=== PATIENT | female | born 1995 | race Caucasian/White ===

== ENCOUNTER 2020-05-13 12:22 | Emergency (ER) | payer OTHER ==
[~2020-05-13] VITALS: Ht 149.9 cm; Wt 90.8 kg
[2020-05-13] MEDS ORDERED: KETOROLAC TROMETHAMINE 10 MG TAB PO ONE (13:30)
[2020-05-13 13:44] LABS: BASO # 0.1 10^3/uL (0.0-0.2); BASO % 0.7 % (0.0-1.0); EOS # 0.1 10^3/uL (0.0-0.5); EOS % 1.6 % (0.0-3.0); HEMATOCRIT 41.5 % (36.0-47.0); HEMOGLOBIN 13.7 g/dl (12.0-15.5); LYMPH # 2.8 10^3/uL (1.5-5.0); LYMPH % 37.7 % (24.0-44.0); MEAN CORPUSCULAR HEMOGLOBIN 28.7 pg (27.0-33.0); MONO # 0.4 10^3/uL (0.0-0.8); MONO % 5.5 % (0.0-5.0); PLATELET COUNT, AUTOMATED 356 10^3/uL (150-450); RED BLOOD COUNT 4.77 10^6/uL (4.00-5.40); WHITE BLOOD COUNT 7.3 10^3/uL (4.0-10.0)
--- NOTE | 2020-05-13 14:42 | REP ---
INDICATION: headache dizzy COMPARISON: None. TECHNIQUE: Axial noncontrast images from the skull base to the vertex with coronal reformations. This CT examination was performed using the following dose reduction techniques: Automated exposure control, adjustment of mA and/or kv according to the patient's size, and use of iterative reconstruction technique. FINDINGS: The ventricles, sulci, and cisterns are normal in position and appearance. Rai-white differentiation is maintained. No acute intracranial hemorrhage, mass/mass effect, pathology or trauma/injury. No evidence for acute infarction. No extra-axial fluid collection. Calvarium is intact. Paranasal sinuses and mastoid air cells are clear. IMPRESSION: Normal noncontrast head CT. No evidence for acute intracranial pathology or trauma/injury. <Electronically signed by Raimundo Fabian > 05/13/20 [id number]
[2020-05-13 15:16] LABS: CK-MB VALUE MASS < 1.0 NG/ML (<3.6); CPK CREATINE PHOSPHOKINASE 48 U/L (26-192); FREE T4 1.06 NG/DL (0.76-1.46); MB/CK RELATIVE INDEX 2.08 (< OR =4); TROPONIN I < 0.02 NG/ML (< 0.10)
[2020-05-13 15:55] VITALS: BP 128/69
== END 2020-05-13 15:57 | disposition home or self-care (01) ==
LOC: M ED 12:22
DX: R51.9 Headache, unspecified (principal); H53.9 Unspecified visual disturbance; R42 Dizziness and giddiness; J45.909 Unspecified asthma, uncomplicated; K21.9 Gastro-esophageal reflux disease without esophagitis

== ENCOUNTER 2020-08-24 07:29 | Emergency (ER) | payer OTHER ==
[~2020-08-24] VITALS: Ht 149.9 cm; Wt 86.9 kg
[2020-08-24] MEDS ORDERED: MULTTAB61 PO (08:02)
[2020-08-24] MEDS ORDERED: ONDANSETRON 4MG/2ML VIAL IV ONE (08:05)
[2020-08-24 08:26] LABS: BASO # 0.1 10^3/uL (0.0-0.2); BASO % 0.8 % (0.0-1.0); EOS # 0.2 10^3/uL (0.0-0.5); EOS % 2.8 % (0.0-3.0); HEMATOCRIT 39.8 % (36.0-47.0); HEMOGLOBIN 13.5 g/dl (12.0-15.5); LYMPH # 2.2 10^3/uL (1.5-5.0); LYMPH % 31.3 % (24.0-44.0); MEAN CORPUSCULAR HEMOGLOBIN 29.6 pg (27.0-33.0); MEAN CORPUSCULAR HGB CONC 33.9 g/dl (32.0-36.5); MEAN CORPUSCULAR VOLUME 87.3 fl (80.0-96.0); MONO # 0.5 10^3/uL (0.0-0.8); MONO % 6.3 % (2.0-8.0); NEUTROPHILS # 4.2 10^3/uL (1.5-8.5); NEUTROPHILS % 58.2 % (36.0-66.0); PLATELET COUNT, AUTOMATED 333 10^3/uL (150-450); RED BLOOD COUNT 4.56 10^6/uL (4.00-5.40); WHITE BLOOD COUNT 7.2 10^3/uL (4.0-10.0)
--- NOTE | 2020-08-24 08:42 | REP ---
INDICATION: upper abd pain, worse after eating COMPARISON: None. TECHNIQUE: Real time reed scale ultrasound examination using curved array transducer. FINDINGS: Liver demonstrates fatty infiltration without focal hepatic lesion identified. Pancreas is incompletely evaluated due to interposed bowel gas. The gallbladder demonstrates multiple gallstones without wall thickening or pericholecystic fluid. No biliary ductal dilatation is appreciated and the common bile duct measures 3.5 mm diameter. Right kidney is normal in reniform shape without hydronephrosis and measures 12.0 x 3.0 x 4.5 cm cm. No ascites in the visualized right upper quadrant. IMPRESSION: 1. Cholelithiasis without sonographic evidence for acute cholecystitis. 2. Hepatosteatosis. <Electronically signed by Raimundo Fabian > 08/24/20 [id number]
--- NOTE | 2020-08-24 08:43 | REP ---
INDICATION: Abdominal Pain COMPARISON: None. TECHNIQUE: Upright view of the chest with supine and upright views of the abdomen and pelvis. FINDINGS: Frontal upright view of the chest demonstrates no acute cardiopulmonary process or free air below the diaphragm to suspect pneumoperitoneum. Supine and upright views of the abdomen and pelvis demonstrate nonspecific bowel gas pattern without obstruction or perforation. No organomegaly. No abnormal calcifications. Skeletal structures normal for age. IMPRESSION: Nonspecific bowel gas pattern. <Electronically signed by Raimundo Fabian > 08/24/20 [id number]
[2020-08-24 08:54] LABS: ALBUMIN 3.7 GM/DL (3.2-5.2); ALT/SGPT 15 U/L (12-78); BILIRUBIN,DIRECT 0.1 MG/DL (0.0-0.2); BILIRUBIN,TOTAL 0.3 MG/DL (0.2-1.0); CK-MB VALUE MASS < 1.0 NG/ML (<3.6); CPK CREATINE PHOSPHOKINASE 56 U/L (26-192); LIPASE 39 U/L (73-393); MB/CK RELATIVE INDEX 1.79 (< OR =4); TOTAL PROTEIN 7.2 GM/DL (6.4-8.2); TROPONIN I < 0.02 NG/ML (< 0.10)
[2020-08-24] MEDS ORDERED: ZOFR4TAB16 PO (09:08)
[2020-08-24] MEDS ORDERED: PROT1TAB2 PO (09:08)
[2020-08-24 09:16] VITALS: BP 122/66
[2020-08-26] MEDS ORDERED: KETO10TAB PO (19:13)
[2020-08-26] MEDS ORDERED: ZOFR4TAB16 PO (19:14)
== END 2020-08-24 09:18 | disposition home or self-care (01) ==
LOC: M ED 07:29
DX: K80.70 Calculus of gallbladder and bile duct without cholecystitis without obstruction (principal); J45.909 Unspecified asthma, uncomplicated; K21.9 Gastro-esophageal reflux disease without esophagitis; Z79.899 Other long term (current) drug therapy; Z87.891 Personal history of nicotine dependence
CPT/HCPCS: 36415; 74021; 76705; 80047; 80076; 82550; 82553; 83690; 84484; 84702; 85025; 96374; 99284; J2405

== ENCOUNTER → 2020-09-12 | Outpatient (CLI) | payer OTHER ==
[~2020-09-12] MED LIST: KETO10TAB PO; MULTTAB61 PO; PROT1TAB2 PO; ZOFR4TAB16 PO
== END ==
LOC: M LABSMTC 10:17
PROVIDERS: ATTEND Surgery
DX: Z01.818 Encounter for other preprocedural examination (principal); Z11.52 Encounter for screening for COVID-19

== ENCOUNTER 2020-09-17 11:03 | Day surgery (SDC) | payer OTHER ==
[~2020-09-17] VITALS: Ht 149.9 cm; Wt 86.5 kg
[~2020-09-17 11:03] MED LIST changes: +AMPICILLIN SOD/SULBACTAM SOD 3 GM in D5W MINI-BAG PLUS 100 ML IV ONE; +CelecoXIB (CeleBREX) 100 MG CAP PO ONE; +LR 1,000 ML IV ONE; +ceFAZolin SOD 1 GM in D5W MINI-BAG PLUS 50 ML IV ONE; +ceFAZolin SOD 2 GM in IV 1 EA IV ONE
[2020-09-17] MEDS ORDERED: ONDANSETRON 4MG/2ML VIAL As Ordered ONE (11:23)
[2020-09-17] MEDS ORDERED: propofoL 200 MG/20 ML VIAL As Ordered ONE (11:23)
[2020-09-17] MEDS ORDERED: fentaNYL 100 MCG/2 ML INJECTION (J3010) As Ordered ONE ×2 (11:23→14:54)
[2020-09-17] MEDS ORDERED: ROCURONIUM BROMIDE 50 MG/5 ML VIAL As Ordered ONE (11:23)
[2020-09-17] MEDS ORDERED: LIDOCAINE 2% 100MG/5ML SDV (FOR ANES.) As Ordered ONE (11:23)
[2020-09-17] MEDS ORDERED: dexameTHASONE 4 MG/ML 1ML VIAL (J1100 PER 1MG) As Ordered ONE (11:23)
[2020-09-17] MEDS ORDERED: MIDAZOLAM INJ 2MG/2ML VIAL (J2250 PER 1MG) As Ordered ONE (11:23)
[2020-09-17] MEDS ORDERED: LIDOCAINE 1% SDV 30ML VIAL As Ordered ONE (13:52)
[2020-09-17] MEDS ORDERED: BUPIVACAINE HCL 0.25% 30ML VIAL As Ordered ONE (13:53)
[2020-09-17] MEDS ORDERED: UNASYN 3 GM VIAL As Ordered ONE (14:08)
[2020-09-17] MEDS ORDERED: ACETAMINOPHEN 1000MG 100ML IV BTL (OFIRMEV) (J0131 PER 10MG) As Ordered ONE (15:09)
[2020-09-17] MEDS ORDERED: LACRILUBE (AKWA TEARS) OPHTH OINT 3.5 GM As Ordered ONE (15:09)
[2020-09-17] MEDS ORDERED: SUGAMMADEX SODIUM 500 MG/5 ML VIAL (BRIDION) As Ordered ONE (15:09)
[2020-09-17] MEDS ORDERED: ESMOLOL INJ 100MG/10ML VIAL As Ordered ONE (15:18)
[2020-09-17] MEDS ORDERED: HYDROmorphone HCL 2 MG/ML 1ML VIAL (J1170) As Ordered ONE (15:26)
[2020-09-17] MEDS ORDERED: ONDANSETRON 4MG/2ML VIAL IV PRN ×2 (16:10→16:15)
[2020-09-17] MEDS ORDERED: HYDROMORPHONE HCL 0.5 MG/ 0.5 ML SYRINGE (J1170 PER 1) IV PRN (16:10)
[2020-09-17] MEDS ORDERED: LR 1,000 ML IV SCH (16:10)
[2020-09-17] MEDS ORDERED: NORCO, ANEXSIA 5/325MG TABLET (HYDROcodone/ACETAMINOPHEN) PO PRN (16:15)
[2020-09-17] MEDS: oxyCODONE 5MG TAB PO PRN ×2 (16:23→17:41)
[2020-09-17] MEDS: fentaNYL 100 MCG/2 ML INJECTION (J3010) IV PRN ×2 (16:24→16:30)
[2020-09-17] MEDS ORDERED: KETOROLAC 30 MG/ML 1ML VIAL IV PRN (17:30)
[2020-09-17 18:15] VITALS: BP 105/57
--- NOTE | 2020-09-25 02:57 | ROOPDOC ---
[facility] Report Of Operation Report of Operation DATE OF PROCEDURE: 09/17/20 PREPROCEDURE DIAGNOSES: Symptomatic Cholelithiasis. POSTPROCEDURE DIAGNOSES: Cholelithiasis, mild chronic cholecystitis. PROCEDURE: Robotic assisted Laparoscopic Cholecystectomy. SURGEON: Olvin Pruitt MD [employer] CONSULTANT: Peri Andrade NP assited with placement of ports, management of the robotic arms, instrument exchange on the field while I was at the Surgeon's console, extraction of the gb and closure ofports ANESTHESIA: General Endotracheal Anesthesia. ESTIMATED BLOOD LOSS: Approximately 10 mL. COMPLICATIONS: none. REMARKS: 24 F with intermittent ruq and epigastric postprandial discomfort from her gallstones. PROCEDURE NOTE: mild thick walled gb, moderately distended, soft, floating stones at the gb neck. DESCRIPTION OF PROCEDURE: Patient was given a dose Unasyn 3 g IV preoperatively for prophylaxis. She was given ICG 5 mg IV 30 minutes prior to the procedure. She was brought to the operating room, laid supine on the table, compression boots placed for DVT prophylaxis. General endotracheal anesthesia started. His abdomen then prepped and draped in usual sterile fashion. We paused for a surgical timeout using both pre-incision safety checklist to verify correct patient, procedure site and additional clinical information prior to beginning the procedure Entry to the abdomen done through a small incision just to the right and below the umbilicus via Veress needle technique. Proper placement confirmed with saline drop technique. CO2 insufflation and started to pressure 15 mmHg. Using the same incision an 8 mm robotic trocar was placed under direct vision of laparoscope. Insertion site was inspected for injury and none was found. She was positioned in reverse Trendelenburg slightly tilted towards the left side. She had moderate bulky omentum covering bowel. She has an smooth appearing liver. Gallbladder is noted mildly thick walled, moderately distended. After positioning the patient 3 other robotic trochars along the same line were placed one at the right midclavicular line and one at the left midclavicular line and one slightly to the towards the left anterior axillary line. Under laparoscopic guidance, bilateral transversus abdominis plane block performed using a mixture of 1% lidocaine and 1/4% Marcaine. A total of 20 mL's of the mixture infiltrated on each side. The da Fabián robot tower was then positioned in place and the trochars docked. The instruments were then placed intra-abdominally under direct vision. I then unscrubbed and to control of the robotic camera and instruments at the surgeon's console. Operative findings: As mentioned she has a smooth liver. Gallbladder is moderately distended but relatively relatively soft and supple. On firefly there is good visualization of the course of the cystic duct, coma bile duct and common hepatic duct The fundus of the gallbladder was grasped and the gallbladder was elevated superiorly exposing the neck of the gallbladder. The peritoneum overlying the area was opened up and dissected free both anteriorly and posteriorly to help with retraction of the gallbladder. The infundibulum retracted laterally to open up the hepatocystic triangle. The hepatocystic triangle was approached and dissected. The cystic duct was identified coming off from the neck of the gallbladder this was circumferentially dissected. The cystic artery was identified in its usual position medially behind a small hepatocystic lymph node. This was similarly circumferentially dissected off surrounding adipose tissue. We continued posterior dissection proximally at the neck of the gallbladder until a critical view of safety was achieved whereby only the previously identified duct and artery coursing through the neck the gallbladder. The cystic artery was divided after placing 2 Hem-o-rajesh clips. The cystic duct was divided after placing 3 Hem-o-rajesh clips . The remaining attachments of the gallbladder to the liver bed was then dissected with cautery while I was dissecting posteriorly small branch of the cystic artery posteriorly was not immediately recognized and this bled. This was controlled with the bipolar cautery and also another [place] clip. The spilled blood was suctioned and irrigated. The gallbladder was retrieved through the anterior axillary port which had to enlarge. This was then later closed with a Flex Crespo device using 0 Vicryl in a mattress fashion After this the abdomen deflated. Rest of the incisions were closed with 4-0 Monocryl in subcutaneous fashion. Steri-Strips and gauze dressings in place in top of the incisions. Patient was then promptly awakened, extubated and brought to recovery room in stable condition. OLVIN PRUITT MD September 25, 2020 02:57
== END 2020-09-17 18:20 | disposition home or self-care (01) ==
LOC: M SDC 11:03
PROVIDERS: ATTEND Surgery
DX: K80.10 Calculus of gallbladder with chronic cholecystitis without obstruction (principal); K21.9 Gastro-esophageal reflux disease without esophagitis; E66.01 Morbid (severe) obesity due to excess calories; Z68.38 Body mass index [BMI] 38.0-38.9, adult; Z79.899 Other long term (current) drug therapy; Z87.891 Personal history of nicotine dependence
CPT/HCPCS: 47563; 81025; 88304; J0131; J1100; J1170; J2250; J2405; J3010; S2900

== ENCOUNTER 2021-03-08 02:57 | Emergency (ER) | payer OTHER ==
[~2021-03-08] VITALS: Ht 149.9 cm; Wt 84.1 kg
[~2021-03-08 02:57] MED LIST changes: -AMPICILLIN SOD/SULBACTAM SOD 3 GM in D5W MINI-BAG PLUS 100 ML IV ONE; -CelecoXIB (CeleBREX) 100 MG CAP PO ONE; -LR 1,000 ML IV ONE; -ceFAZolin SOD 1 GM in D5W MINI-BAG PLUS 50 ML IV ONE; -ceFAZolin SOD 2 GM in IV 1 EA IV ONE
--- OUTSIDE RECORDS SUMMARY | 2021-03-08 03:05 | CCD ---
Author Author [facility] Organization [facility] Address Unknown Phone Unavailable Care Team Providers Care Merchandise Presentation Manager Name Role Phone Munoz Kera DIGESTER OPERATOR Unavailable Unavailable Munoz, Kera DIGESTER OPERATOR Unavailable Unavailable Munoz, Kera DIGESTER OPERATOR Unavailable Unavailable Munoz, Kera DIGESTER OPERATOR Unavailable Unavailable Munoz, Kera DIGESTER OPERATOR Unavailable Unavailable Munoz, Kera DIGESTER OPERATOR Unavailable Unavailable Munoz, Kera DIGESTER OPERATOR Unavailable Unavailable Munoz, Kera DIGESTER OPERATOR Unavailable Unavailable Munoz, Kera DIGESTER OPERATOR Unavailable Unavailable Munoz, Kera DIGESTER OPERATOR Unavailable Unavailable Munoz, Kera DIGESTER OPERATOR Unavailable Unavailable Munoz, Kera DIGESTER OPERATOR Unavailable Unavailable Munoz, Kera DIGESTER OPERATOR Unavailable Unavailable Maring, Moreno PA Unavailable Unavailable Maring, Moreno PA Unavailable Unavailable Maring, Moreno PA Unavailable Unavailable Maring, Moreno PA Unavailable Unavailable Maring, Moreno PA Unavailable Unavailable Maring, Moreno PA Unavailable Unavailable Maring, Moreno PA Unavailable Unavailable Maring, Moreno PA Unavailable Unavailable Maring, Moreno PA Unavailable Unavailable Maring, Moreno PA Unavailable Unavailable Maring, Moreno PA Unavailable Unavailable Maring, Moreno PA Unavailable Unavailable Maring, Moreno PA Unavailable Unavailable Maring, Moreno PA Unavailable Unavailable Maring, Moreno PA Unavailable Unavailable Maring, Moreno PA Unavailable Unavailable LETTIERE, A CLEMENTINE PA Unavailable Unavailable LETTIERE, A CLEMENTINE PA Unavailable Unavailable LETTIERE, A CLEMENTINE PA Unavailable Unavailable LETTIERE, A CLEMENTINE PA Unavailable Unavailable LETTIERE, A CLEMENTINE PA Unavailable Unavailable LETTIERE, A CLEMENTINE PA Unavailable Unavailable LETTIERE, A CLEMENTINE PA Unavailable Unavailable LETTIERE, A CLEMENTINE PA Unavailable Unavailable LETTIERE, A CLEMENTINE PA Unavailable Unavailable LETTIERE, A CLMEENTINE PA Unavailable Unavailable LETTIERE, A CLEMENTINE PA Unavailable Unavailable LETTIERE, A CLEMENTINE PA Unavailable Unavailable LETTIERE, A CLEMENTINE PA Unavailable Unavailable LETTIERE, A CLEMENTINE PA Unavailable Unavailable LETTIERE, A CLEMENTINE PA Unavailable Unavailable LETTIERE, A CLEMENTINE PA Unavailable Unavailable LETTIERE, A CLEMENTINE PA Unavailable Unavailable LETTIERE, A CLEMENTINE PA Unavailable Unavailable LETTIERE, A CLEMENTINE PA Unavailable Unavailable LETTIERE, A CLEMENTINE PA Unavailable Unavailable LETTIERE, A CLEMENTINE PA Unavailable Unavailable LETTIERE, A CLEMENTINE PA Unavailable Unavailable LETTIERE, A CLEMENTINE PA Unavailable Unavailable LETTIERE, A CLEMENTINE PA Unavailable Unavailable LETTIERE, A CLEMENTINE PA Unavailable Unavailable LETTIERE, A CLEMENTINE PA Unavailable Unavailable LETTIERE, A CLEMENTINE PA Unavailable Unavailable LETTIERE, A CLEMENTINE PA Unavailable Unavailable LETTIERE, A CLEMENTINE PA Unavailable Unavailable LETTIERE, A CLEMENTINE PA Unavailable Unavailable LETTIERE, A CLEMENTINE PA Unavailable Unavailable Chris VELAZQUEZ MD Unavailable Unavailable BARAYUGAChris MD Unavailable Unavailable BARAYUGAChris MD Unavailable Unavailable BARAYUGAChris MD Unavailable Unavailable SOBEIDAAYUGAChris MD Unavailable Unavailable BARAYUGAChris MD Unavailable Unavailable BARAYUGAChris MD Unavailable Unavailable BARAYUGAChris MD Unavailable Unavailable KATHERINEUGAChris MD Unavailable Unavailable BARAYUGAChris MD Unavailable Unavailable Chris VELAZQUEZ MD Unavailable Unavailable SOBEIDAAYUGAChris MD Unavailable Unavailable BARAYUGAChris MD Unavailable Unavailable BARAYUGAChris MD Unavailable Unavailable KATHERINEUGAChris MD Unavailable Unavailable Chris VELAZUQEZ MD Unavailable Unavailable Chris VELAZQUEZ MD Unavailable Unavailable Chris VELAZQUEZ MD Unavailable Unavailable Chris VELAZQUEZ MD Unavailable Unavailable KATHERINEUGAChris MD Unavailable Unavailable Chris VELAZQUEZ MD Unavailable Unavailable Chris VELAZQUEZ MD Unavailable Unavailable Chris VELAZQUEZ MD Unavailable Unavailable Chris VELAZQUEZ MD Unavailable Unavailable KATHERINEUGAChris MD Unavailable Unavailable BARAYUGAChris MD Unavailable Unavailable BARAYUGAChrisO MD Unavailable Unavailable Chris VELAZQUEZ MD Unavailable Unavailable Chris VELAZQUEZ MD Unavailable Unavailable Chris VELAZQUEZ MD Unavailable Unavailable Chris VELAZQUEZ MD Unavailable Unavailable Chris VELAZQUEZ MD Unavailable Unavailable Chris VELAZQUEZ MD Unavailable Unavailable Chris VELAZQUEZ MD Unavailable Unavailable BARAYUGAChris MD Unavailable Unavailable Paula, L Keke RPA Unavailable Unavailable Paula, L Keke RPA Unavailable Unavailable Paula, L Keke RPA Unavailable Unavailable Paula, L Keke RPA Unavailable Unavailable Paula, L Keke RPA Unavailable Unavailable Paula, L Keke RPA Unavailable Unavailable Paula, L Keke RPA Unavailable Unavailable Paula, L Keke RPA Unavailable Unavailable Paula, L Keke RPA Unavailable Unavailable Paula, L Keke RPA Unavailable Unavailable Paula, L Keke RPA Unavailable Unavailable Paula, L Keke RPA Unavailable Unavailable Paula, L Keke RPA Unavailable Unavailable Paula, L Keke RPA Unavailable Unavailable Paula, L Keke RPA Unavailable Unavailable Paula, L Keke RPA Unavailable Unavailable Paula, L Keke RPA Unavailable Unavailable Paula, L Keke RPA Unavailable Unavailable Paula, L Keke RPA Unavailable Unavailable Paula, L Keke RPA Unavailable Unavailable Paula, L Keke RPA Unavailable Unavailable Paula, L Keke RPA Unavailable Unavailable Paula, L Keke RPA Unavailable Unavailable Paula, L Keke RPA Unavailable Unavailable Paula, L Keke RPA Unavailable Unavailable Paula, L Keke RPA Unavailable Unavailable Paula, L Keke RPA Unavailable Unavailable Paula, L Keek RPA Unavailable Unavailable Paula, L Keke RPA Unavailable Unavailable Paula, L Keke RPA Unavailable Unavailable Paula, L Keke RPA Unavailable Unavailable Paula, L Keke RPA Unavailable Unavailable Suzan Santana MD Unavailable Unavailable Suzan Santana MD Unavailable Unavailable Suzan Santana MD Unavailable Unavailable Suzan Santana MD Unavailable Unavailable Suzan Santana MD Unavailable Unavailable Suzan Santana MD Unavailable Unavailable Suzan Santana MD Unavailable Unavailable Suzan Santana MD Unavailable Unavailable Suzan Santana MD Unavailable Unavailable Suzan Santana MD Unavailable Unavailable Suzan Santana MD Unavailable Unavailable Suzan Santana MD Unavailable Unavailable Suzan Santana MD Unavailable Unavailable Suzan Santana MD Unavailable Unavailable Suzan Santana MD Unavailable Unavailable Suzan Santana Maricruz Unavailable Unavailable Suzan Santana Maricruz Unavailable Unavailable Suzan Santana Maricruz MD Unavailable Unavailable Max, Suzan Maricruz MD Unavailable Unavailable Santana, Suzan Maricruz MD Unavailable Unavailable Santana, Suzan Maricruz MD Unavailable Unavailable Santana, Suzan Maricruz MD Unavailable Unavailable Santana, C Maricruz MD Unavailable Unavailable Max, Suzan Maricruz MD Unavailable Unavailable Max C Maricruz MD Unavailable Unavailable Re-disclosure Warning The records that you are about to access may contain information from federally-assisted alcohol or drug abuse programs. If such information is present, then the following federally mandated warning applies: This information has been disclosed to you from records protected by federal confidentiality rules (42 CFR part 2). The federal rules prohibit you from making any further disclosure of this information unless further disclosure is expressly permitted by the written consent of the person to whom it pertains or as otherwise permitted by 42 CFR part 2. A general authorization for the release of medical or other information is NOT sufficient for this purpose. The Federal rules restrict any use of the information to criminally investigate or prosecute any alcohol or drug abuse patient.The records that you are about to access may contain highly sensitive health information, the redisclosure of which is protected by Article 27-F of the [facility] Public Health law. If you continue you may have access to information: Regarding HIV / AIDS; Provided by facilities licensed or operated by the [facility] Office of Mental Health; or Provided by the [facility] Office for People With Developmental Disabilities. If such information is present, then the following [facility] mandated warning applies: This information has been disclosed to you from confidential records which are protected by state law. State law prohibits you from making any further disclosure of this information without the specific written consent of the person to whom it pertains, or as otherwise permitted by law. Any unauthorized further disclosure in violation of state law may result in a fine or residential sentence or both. A general authorization for the release of medical or other information is NOT sufficient authorization for further disc losure. Encounters Encounter Providers Location Date Indications Data Source(s ) Outpatient Attender: Kera alicia 03/05/2021 10:55:00 AM EDT [facility] ([facility], [facility]) Outpatient Attender: CLEMENTINE medina 02/11/2021 09:00:00 AM EDT [facility] ([facility], [facility]) Office Visit Attender: Keke Paula RPA [place] 10/09/2020 11:00:00 AM EDT [facility] ([facility], ) Office Visit Attender: Keke Paula RPA [place] 10/01/2020 10:00:00 AM EDT [facility] Outpatient Attender: RUDY [place]/ [place] 09/10/2020 09:00:00 AM EDT [facility] ([facility], ) Outpatient Attender: RUDY [place]/ [place] 09/05/2020 01:45:00 PM EDT [facility] ([facility] ) Outpatient Attender: Moreno HANNAH 08/16/19 09:10:09 AM EDT - 08/15/2020 09:34:15 AM EDT [facility] ([facility] ) Outpatient Attender: Maricruz Santana MD 0 07/11/2020 12:01:20 PM EST - 07/11/2020 12:22:24 PM EST [facility] ([facility]) Immunizations Vaccine Date Status Description Data Source(s) COVID-19 VACCINE Moderna 09/11/2020 12:00:00 AM EDT completed [facility] Vaccine Series Complete: YESThis Data wa s Submitted to [facility]. COVID-19 VACCINE Moderna 08/14/2020 12:00:00 AM EDT completed [facility] Vaccine Series Complete: NOThis Data was Submitted to [facility]. Medications Medication Brand Name Start Date Product Form Dose Route Admi nistrative Instructions Pharmacy Instructions Status Indications Reaction Description Data Source(s) Amoxicillin 875 MG Oral Tablet Amoxicillin 03/05/2021 12:00:00 AM EDT ORAL active [facility] ([facility], [facility]) Acetaminophen 325 MG / Hydrocodone Bitartrate 5 MG Ora l Tablet Hydrocodone-Acetaminophen 09/17/2020 12:00:00 AM EDT ORAL completed [facility] ([facility]) Acetaminophen 325 MG / Hydrocodone Bitartrate 5 MG Ora l Tablet Hydrocodone Bitartrate/Acetaminophen 09/10/2020 12:00:00 AM EDT ORAL completed [facility] ([facility]) Insurance Providers Payer name Policy type / Coverage type Policy ID Covered green party ID Covered green party's relationship to anderson Policy Anderson Plan Information [facility] [id number] SP [id number] FF Self Pay [id number] Self [id number] [facility] [id number] SP [id number] FF Self Pay [id number] Self [id number] [facility] [id number] S [id number] Problems, Conditions, and Diagnoses No Information Surgeries/Procedures Procedure Description Date Indications Data Source(s) OFFICE OUTPATIENT VISIT 15 MINUTES 03/05/2021 12:00:00 AM EDT [facility] ([facility]) OFFICE OUTPATIENT NEW 30 MINUTES 02/11/2021 12:00:00 A M EDT [facility] ([facility]) Laparoscopy,Surgical;Cholecystectomy 09/17/2020 12:00: 00 AM EDT [facility] ([facility]) OFFICE OUTPATIENT VISIT 25 MINUTES 09/10/2020 12:00:00 AM EDT [facility] ([facility]) OFFICE OUTPATIENT NEW 45 MINUTES 09/05/2020 12:00:00 A M EDT [facility] ([facility]) Results ID Date Data Source [id number] 02/11/2021 12:00:00 AM EDT [facility] Name Value Range Interpretation Code Description Data Madhuri rce(s) Supporting Document(s) SARS-CoV2 Rapid Antigen Negative [facility] This lab was ordered by [facility] and reported by [facility]. ID Date Data Source [id number] 09/17/2020 03:32:00 PM EDT [facility] ([facility]) Name Value Range Interpretation Code Description Data Madhuri rce(s) Supporting Document(s) Surgical pathology study Laboratory test result [facility] ([facility]) FINAL DIAGNOSIS Gallbladder, cholecystectomy: Cholelithiasis. Chronic cholecystitis with cholesterolosis. 09/19/2020919 CLINICAL DIAGNOSIS Symptomatic cholelithiasis, biliary colic 09/18/20201338 GROSS DIAGNOSIS Received in formalin labeled "gallbladder and contents" and consists of a gallbladder 8 x 2 x 2 cm. The specimen is opened to reveal gallstones measuring from 0.5-2.0 cm. The mucosa is grossly unremarkable. No polypoid or mass lesion is identified. Secretary To Board Of Commissioners section submitted in one. -OA 09/18/[id number] Signed HERRERA MONDRAGON MD 09/19/2020920 ID Date Data Source [id number] 09/12/2020 10:35:00 AM EDT [facility] ([facility]) Name Value Range Interpretation Code Description Data Madhuri rce(s) Supporting Document(s) Laboratory test finding (navigational concept) Laboratory test result [facility] ([facility]) ASSAY INFORMATION: Real Time RT-PCR NOTE: The COVID-19 assay has been cleared by the U.S. Food and Drug Administration under the Emergency Use Authorization (EUA). [facility] and [facility] are designated as high complexity laboratories by the Clinical Laboratory Improvement Amendments of 1988(CLIA) and are qualified to perform this test. Not Detected ID Date Data Source [id number] 09/12/2020 10:35:00 AM EDT [facility] Name Value Range Interpretation Code Description Data Madhuri rce(s) Supporting Document(s) SARS-CoV-2 (COVID-19) RNA [Presence] in Respiratory specimen by ER[facility] with probe detection Not Detected [facility] This lab was ordered by [facility] and reported by [employer] ID Date Data Source [id number] 07/13/2020 06:32:00 AM EST [facility] Name Value Range Interpretation Code Description Data Madhuri rce(s) Supporting Document(s) BHD COVID-19 RT-PCR DIGESTER OPERATOR SWAB Not Detected Not Detected [facility] This test has received Emergency Use Aut horization (EUA). We willcontinue to follow federal and state requirements for COVID-19reporting. This test was developed and its performance characteristicsdetermined by [employer] [employer]. It has not been cleared orapproved by the U.S. Food and Drug Administration but has been givenemergency use authorization. Results should be used in conjunctionwith clinical findings and should not form the sole basis for adiagnosis or treatment decision. Methods: SARS-CoV-2 Multiplex RT-PCRAssayA not detected (negative) test result for this test means that SARS-CoV-2 RNA was not present in the specimen above the limit ofdetection. Laboratory test results should always be considered in thecontext of clinical observations and epidemiological data in making afinal diagnosis and patient management decisions. Results will bereported to government agencies as required. ID Date Data Source [id number] 07/11/2020 12:15:00 PM EST [facility] Name Value Range Interpretation Code Description Data Madhuri rce(s) Supporting Document(s) SARS coronavirus 2 RNA [Presence] in Res piratory specimen by ERENDIRA with probe detection NEGATIVE [facility] This lab was ordered by [facility] and reported by [employer]. ID Date Data Source [id number] 07/11/2020 12:00:00 AM EST [facility] Name Value Range Interpretation Code Description Data Madhuri rce(s) Supporting Document(s) Carestart Rapid COVID Antigen Test Negative [facility] This lab was reported by [facility]. Procedure Social History Code Duration Value Status Description Data Source(s ) Smoking 03/05/2021 12:00:00 AM EDT Patient has never smoked co mpleted Patient has never smoked [facility] ([facility]) Vital Signs ID Date Data Source UNK Name Value Range Interpretation Code Description Data Source(s) Heart rate 85 /min 85 /min [facility] ([facility]) Body temperature 98.1 [degF] 98.1 [degF] [facility] ([facility]) Body weight 190.00 [lb_av] 190.00 [lb_av] [facility] T ([facility]) Body height 59 [in_i] 59 [in_i] [facility] ([facility]) 4'11" Body mass index (BMI) [Ratio] 38.4 kg/m2 38.4 k g/m2 [facility] ([facility], [facility]) Respiratory rate 20 /min 20 /min [facility], [facility]) Oxygen saturation in Arterial blood by Pulse oximetry 99 % 99 % [facility] ([facility], [facility]) Systolic blood pressure 113 mm[Hg] 113 mm[Hg] M [facility] ([facility], [facility]) Diastolic blood pressure 77 mm[Hg] 77 mm[Hg] [facility] ([facility], [facility]) Body mass index (BMI) [Ratio] 38.4 kg/m2 38.4 k g/m2 [facility] ([facility], [facility]) Systolic blood pressure 103 mm[Hg] 103 mm[Hg] M [facility] ([facility], [facility]) Respiratory rate 14 /min 14 /min [facility] ( [facility], [facility]) Oxygen saturation in Arterial blood by Pulse oximetry 98 % 98 % [facility] ([facility], [facility]) Body temperature 97.3 [degF] 97.3 [degF] [facility] ([facility], [facility]) Body weight 190.00 [lb_av] 190.00 [lb_av] [facility] T ([facility], [facility]) Body height 59 [in_i] 59 [in_i] [facility] ([facility], [facility]) 4'11" Diastolic blood pressure 69 mm[Hg] 69 mm[Hg] [facility] ([facility], [facility]) Heart rate 92 /min 92 /min [facility] ([facility], [facility]) Systolic blood pressure 127 mm[Hg] 127 mm[Hg] M [facility] ([facility]) Diastolic blood pressure 77 mm[Hg] 77 mm[Hg] [facility] ([facility]) Body height 59 [in_i] 59 [in_i] [facility] ([facility]) 4'11" Body weight 194.50 [lb_av] 194.50 [lb_av] [facility] T ([facility]) Body mass index (BMI) [Ratio] 39.3 kg/m2 39.3 k g/m2 [facility] ([facility]) [place] body weight 100 [lb_av] 100 [lb_av] [facility] ([facility]) Body weight 88.225 kg 88.225 kg [facility] ([facility]) Body surface area Derived from formula 1.82 m2 1.82 m2 [facility] ([facility]) Body height 59 [in_i] 59 [in_i] [facility] ([facility]) 4'11" Body weight 194.50 [lb_av] 194.50 [lb_av] [facility] ([facility]) Body mass index (BMI) [Ratio] 39.3 kg/m2 39.3 k g/m2 [facility] ([facility]) [place] body weight 100 [lb_av] 100 [lb_av] [facility] ([facility]) Body weight 88.225 kg 88.225 kg [facility] ([facility]) Body surface area Derived from formula 1.82 m2 1.82 m2 [facility] ([facility]) Body weight 86.354 kg 86.354 kg [facility] ([facility]) Body height 59 [in_i] 59 [in_i] [facility] ([facility]) 4'11" Body weight 190.38 [lb_av] 190.38 [lb_av] [facility] ([facility]) Body mass index (BMI) [Ratio] 38.4 kg/m2 38.4 k g/m2 [facility] ([facility]) [place] body weight 100 [lb_av] 100 [lb_av] [facility] ([facility]) Body surface area Derived from formula 1.81 m2 1.81 m2 [facility] ([facility]) Systolic blood pressure 132 mm[Hg] 132 mm[Hg] [facility] ([facility]) Diastolic blood pressure 82 mm[Hg] 82 mm[Hg] [facility] Heart rate 84 /min 84 /min [facility] ([facility]) Body height 59 [in_i] 59 [in_i] [facility] ([facility]) 4'" Body weight 190.38 [lb_av] 190.38 [lb_av] [facility] ([facility]) Body mass index (BMI) [Ratio] 38.4 kg/m2 38.4 k g/m2 [facility] ([facility]) [place] body weight 100 [lb_av] 100 [lb_av] [facility] ([facility]) Body weight 86.354 kg 86.354 kg [facility] ([facility]) Body surface area Derived from formula 1.81 m2 1.81 m2 [facility] ([facility]) Systolic blood pressure 124 mm[Hg] 124 mm[Hg] [facility] Diastolic blood pressure 85 mm[Hg] 85 mm[Hg] [facility] ([facility]) Body height 59 [in_i] 59 [in_i] [facility] ([facility]) " Body weight 193.25 [lb_av] 193.25 [lb_av] [facility] ([facility]) Body mass index (BMI) [Ratio] 39.0 kg/m2 39.0 k g/m2 [facility] ([facility]) [place] body weight 100 [lb_av] 100 [lb_av] [facility] ([facility]) Body weight 87.658 kg 87.658 kg [facility] ([facility]) Body surface area Derived from formula 1.82 m2 1.82 m2 [facility] ([facility]) Systolic blood pressure 124 mm[Hg] 124 mm[Hg] M [facility] ([facility]) Diastolic blood pressure 77 mm[Hg] 77 mm[Hg] [facility] ([facility]) Heart rate 93 /min 93 /min [facility] ([facility]) Body height 59 [in_i] 59 [in_i] [facility] 4'11" Body weight 192.50 [lb_av] 192.50 [lb_av] [facility] ([facility]) Body mass index (BMI) [Ratio] 38.9 kg/m2 38.9 k g/m2 [facility] ([facility]) [place] body weight 100 [lb_av] 100 [lb_av] [facility] [place] [facility]) Body weight 87.318 kg 87.318 kg [facility] ([facility]) Body surface area Derived from formula 1.81 m2 1.81 m2 [facility] ([facility])
--- OUTSIDE RECORDS SUMMARY | 2021-03-08 03:05 | CCD | Continuity of Care Document ---
Author Author [facility] Organization Unknown Address [address] [place] [address] [place] [address] Phone [phone] Care Team Providers Care Cartographic Engineer Name Role Phone No PCP AUTM Unavailable Problems Description No Information Available Social History Type Date Description Comments Sex Unknown ETOH Use Occasionally consumes alcohol Tobacco Use Start: Unknown The patient has never vaped Tobacco Use Start: Unknown Patient has never smoked Smoking Status Reviewed: 03/05/21 Patient has never smoked Allergies and adverse reactions Description No Known Drug Allergies Medications Active Medications SIG Qnty Indications Ordering Provide r Date Amoxicillin 875mg Tablets 1 tab by mouth twice a day as directed x 10 days 20tabs H65.01 Frandy davila JR., M.D. 03/05/2021 Multi Adult Gummies Unknown Ear Drops 6.5% Solution last night Unknown Immunizations Description No Information Available Vital Signs Date Vital Result Comment 03/05/2021 1:10pm BP Systolic 113 mmHg BP Diastolic 77 mmHg Heart Rate 85 /min Respiratory Rate 20 /min O2 % BldC Oximetry 99 % Body Temperature 98.1 F Weight 190.00 lb Height 59 inches 4'11" BMI (Body Mass Index) 38.4 kg/m2 Pain Level 2 02/11/2021 10:11am BP Systolic 103 mmHg BP Diastolic 69 mmHg Heart Rate 92 /min Respiratory Rate 14 /min O2 % BldC Oximetry 98 % Body Temperature 97.3 F Weight 190.00 lb Height 59 inches 4'11" BMI (Body Mass Index) 38.4 kg/m2 Pain Level 3 Results Description No Information Available Procedures Date Code Description Status 03/05/2021 89542 Office/Outpatient Established Lo w MDM 20-29 Min Completed 02/11/2021 23691 Office/Outpatient New Low MDM 30 -44 Minutes Completed Medical Devices Description No Information Available Encounters Type Date Location Provider Dx Diagnosis Office Visit 03/05/2021 10:55a Main Office Kera Munoz NP H65. 01 Acute serous otitis media, right ear Office Visit 02/11/2021 9:00a Main Office CAMDEN Guillen J06 .9 Acute upper respiratory infection, unspecified Z20.828 Contact w and exposure to ot h viral communicable diseases Assessments Date Code Description Provider 03/05/2021 H65.01 Acute serous otitis media, right ear Kera Munoz NP 02/11/2021 J06.9 Acute upper respiratory infectio n, unspecified CAMDEN Guillen 02/11/2021 Z20.828 Contact with and (holt spected) exposure to other viral communicable diseases CAM[facility] Guillen Plan of Treatment 03/05/2021 - Kera Munoz NP* H65.01 Acute serous otitis media, right ear * New Medication:* Amoxicillin 875 mg - 1 tab by mouth twice a day as directed x 10 days * Comments:* rest/time/fluidstake abx as directedcontinue OTC therapytylenol/motrin PRN for pain/feverf/u PRN or with PCPpatient v/u & agrees to plan Functional Status Description No Information Available Mental Status Description No Information Available Referrals Description No Information Available
--- OUTSIDE RECORDS SUMMARY | 2021-03-08 03:05 | CCD | Continuity of Care Document ---
Author Author [facility] [employer] Organization Unknown Address [address] [place] [address] Phone [phone] Care Team Providers Care Cna Instructor Name Role Phone No PCP AUTM Unavailable [...] Available Procedures Date Code Description Status 03/05/2021 26257 Office/Outpatient Established Lo w MDM 20-29 Min Completed 02/11/2021 15295 Office/Outpatient New Low MDM 30 -44 Minutes Completed Medical Devices Description No Information Available Encounters Type Date Location Provider Dx Diagnosis Office Visit 03/05/2021 10:55a Main Office Kera Root NP H65. 01 Acute serous otitis media, right ear Office Visit 02/11/2021 9:00a Main Office CAMDEN Guillen J06 .9 Acute upper respiratory infection, unspecified Z20.828 Contact w and exposure to ot h viral communicable diseases Assessments Date Code Description Provider 03/05/2021 H65.01 Acute serous otitis media, right ear Kera Root NP 02/11/2021 J06.9 Acute upper respiratory infectio n, unspecified CAMDEN Guillen 02/11/2021 Z20.828 Contact with and (holt spected) exposure to other viral communicable diseases CAM[facility] Guillen Plan of Treatment 03/05/2021 - Kera Root NP* H65.01 Acute serous otitis media, right [...]
--- OUTSIDE RECORDS SUMMARY | 2021-03-08 03:05 | CCD | Continuity of Care Document ---
Author Author Peter [employer] BATCH [employer]ZER OPERATOR Organization Unknown Address [address] [place] [address] Phone [phone] Care Team Providers Care Machine Hostler Name Role Phone No PCP AUTM Unavailable [...] Available Procedures Date Code Description Status 03/05/2021 55426 Office/Outpatient Established Lo w MDM 20-29 Min Completed 02/11/2021 49621 Office/Outpatient New Low MDM 30 -44 Minutes [...]
--- OUTSIDE RECORDS SUMMARY | 2021-03-08 03:05 | CCD | Continuity of Care Document ---
Author Author Peter [facility] Organization Unknown Address [address] [place] [address] Phone [phone] Care Team Providers Care Residential Treatment Counselor Name Role Phone No PCP AUTM Unavailable Problems Description No Information Available Social History Type Date Description Comments Sex Unknown ETOH Use Occasionally consumes alcohol Tobacco Use Start: Unknown The patient has never vaped Tobacco Use Start: Unknown Patient has never smoked Allergies, Adverse Reactions, Alerts Description No Known Drug Allergies Medications Active Medications SIG Qnty Indications Ordering Provide r Date Multi Adult Gummies Unknown Immunizations Description No Information Available Vital Signs Date Vital Result Comment 02/11/2021 10:11am BP Systolic 103 mmHg BP Diastolic 69 mmHg Heart Rate 92 /min Respiratory Rate 14 /min O2 % BldC Oximetry 98 % Body Temperature 97.3 F Weight 190.00 lb Height 59 inches 4'11" BMI (Body Mass Index) 38.4 kg/m2 Pain Level 3 Results Description No Information Available Procedures Date Code Description Status 02/11/2021 75736 Office/Outpatient New Low MDM 30 -44 Minutes Completed Medical Devices Description No Information Available Encounters Type Date Location Provider Dx Diagnosis Office Visit 02/11/2021 9:00a Main Office CAMDEN Guillen J06 .9 Acute upper respiratory infection, unspecified Z20.828 Contact w and exposure to ot h viral communicable diseases Assessments Date Code Description Provider 02/11/2021 J06.9 Acute upper respiratory infectio n, unspecified CAMDEN Guillen 02/11/2021 Z20.828 Contact with and (holt spected) exposure to other viral communicable diseases CAMDEN Guillen Plan of Treatment No Information Available Functional Status Description No Information Available Mental Status Description No Information Available Referrals Description No Information Available
--- OUTSIDE RECORDS SUMMARY | 2021-03-08 03:05 | CCD | Continuity of Care Document ---
Author Author Peter [facility]AN Organization Unknown Address [address] [place] [address] Phone [phone] Care Team Providers Care Double Bottom Driver Name Role Phone No PCP AUTM Unavailable [...] Available Procedures Date Code Description Status 02/11/2021 41281 Office/Outpatient New Low MDM 30 -44 Minutes [...]
--- OUTSIDE RECORDS SUMMARY | 2021-03-08 03:05 | CCD | Continuity of Care Document ---
Author Author [facility] [employer]OCI[facility] Organization Unknown Address [address] [place] [address] Phone [phone] Care Team Providers Care Glass Cutter Hand Name Role Phone No PCP AUTM Unavailable [...] Available Procedures Date Code Description Status 03/05/2021 99540 Office/Outpatient Established Lo w MDM 20-29 Min Completed 02/11/2021 48955 Office/Outpatient New Low MDM 30 -44 Minutes [...]
--- OUTSIDE RECORDS SUMMARY | 2021-03-08 03:05 | CCD | Continuity of Care Document ---
Author Author CAROLINE SRTONG, Peter [facility] Organization Unknown Address [address] [facility] [address] [place] [address] Phone [phone] Care Team Providers Care District Associate Judge Name Role Phone Genia Lamas D.O. AUTM Problems Description No Information Available Social History Type Date Description Comments Sex Unknown ETOH Use 2 Per Month Tobacco Use Start: Unknown End: Unknown Patient is a former smoker 05/10 ppd x6 months quit in 2013 Recreational Drug Use Denies Drug Use Allergies, Adverse Reactions, Alerts Description No Known Drug Allergies Medications Active Medications SIG Qnty Indications Ordering Provide r Date Pantoprazole Sodium 40mg Tablets D R One tab once daily Unknown Multivitamin Adult (Minerals) Tab lets 1 qd Unknown History Medications Hydrocodone-Acetaminophen 5-325mg Tablets take one tablet by mouth every 6 hours as needed for pain maximum daily dose 4 14tabs Olvin Pruitt MD 09/17/2020 - 12/2020 Hydrocodone Bitartrate/Acetaminophen 5-325mg Tablets 1-2 tabs by mouth every 6 hours as needed pain 30tabs K 80.10 Olvin Pruitt MD 09/10/2020 - 09/17/2020 Immunizations Description No Information Available Vital Signs Date Vital Result Comment 10/09/2020 11:04am BP Systolic 127 mmHg BP Diastolic 77 mmHg Height 59 inches 4'11" Weight 194.50 lb BMI (Body Mass Index) 39.3 kg/m2 [place] Body Weight 100 lb Weight 88.225 kg BSA (Body Surface Area) 1.82 m2 10/01/2020 10:10am BP Systolic 132 mmHg BP Diastolic 82 mmHg Heart Rate 84 /min Height 59 inches 4'11" Weight 190.38 lb BMI (Body Mass Index) 38.4 kg/m2 [place] Body Weight 100 lb Weight 86.354 kg BSA (Body Surface Area) 1.81 m2 Results Test Acquired Date Facility Test Result H/L Range Note Laboratory test finding 09/17/2020 [facility] Main Lab [address] [place] [address] [phone] Pathology Request For Service (SEE NOTE) 1 Coronavirus 2019 Nasopharygeal 09/12/2020 [facility] Main Lab [address] [place] [address] [phone] Coronavirus 2019 Nasopharygeal ASSAY INFORMATIO <SEE N OTE> 2 1 FINAL DIAGNOSIS Gallbladder, cholecystectomy: Cholelithiasis. Chronic cholecystitis with cholesterolosis. 09/19/2020 - 919 CLINICAL DIAGNOSIS Symptomatic cholelithiasis, biliary colic 09/18/2020 - 1338 GROSS DIAGNOSIS Received in formalin labeled "gallbladder and contents" and consists of a gallbladder 8 x 2 x 2 cm. The specimen is opened to reveal gallstones measuring from 0.5-2.0 cm. The mucosa is grossly unremarkable. No polypoid or mass lesion is identified. Community Living Coach section submitted in one. -OA 09/18/20201338 Signed HERRERA MONDRAGON MD 09/19/2020 0921 2 ASSAY INFORMATION: Real Time RT-PCR NOTE: The COVID-19 assay has been cleared by the U.S. Food and Drug Administration under the Emergency Use Authorization (EUA). [facility] and [facility] are designated as high complexity laboratories by the Clinical Laboratory Improvement Amendments of 1988(CLIA) and are qualified to perform this test. Not Detected Procedures Date Code Description Status 09/17/2020 23174 Laparoscopy,Surgical;Cholecystec sreekanth Completed 09/10/2020 31233 Office/Outpatient Established Mo d MDM 30-39 Min Completed 09/05/2020 80029 Office/Outpatient New Moderate M DM 45-59 Minutes Completed Medical Devices Description No Information Available Encounters Type Date Location Provider Dx Diagnosis Office Visit 10/09/2020 11:00a [facility] CAMDEN Arroyo K80.10 Calculus of gallbladder w chronic cholec yst w/o obstruction Z48.815 Encntr for surgical aftcr fo llowing surgery on the dgstv sys 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 Office Visit 10/01/2020 10:00a [facility] CAMDEN Arroyo K80.10 Calculus of gallbladder w chronic cholec yst w/o obstruction Z48.815 Encntr for surgical aftcr fo llowing surgery on the dgstv sys 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 Z68.38 Body mass index [BMI] 38.0-3 8.9, adult Office Visit 09/10/2020 9:00a [facility] Kevin Pruitt MD K80.10 Calculus of gallbladder w ch ronic cholecyst w/o obstruction Office Visit 09/05/2020 1:45p [facility] Kevin Pruitt MD E66.01 Morbid (severe) obesity due to excess calories K80.10 Calculus of gallbladder w ch ronic cholecyst w/o obstruction Assessments Date Code Description Provider 10/09/2020 K80.10 Calculus of gallblad rob with chronic cholecystitis without obstruction CAMDEN Paredes 10/09/2020 Z48.815 Encounter for surgic al aftercare following surgery on the digestive system CAMDEN Paredes 10/09/2020 Z90.49 Acquired absence of other specif ied parts of digestive tract CAMDEN Paredes 10/01/2020 K80.10 Calculus of gallblad rob with chronic cholecystitis without obstruction CAMDEN Paredes 10/01/2020 Z48.815 Encounter for surgic al aftercare following surgery on the digestive system CAMDEN Paredes 10/01/2020 Z90.49 Acquired absence of other specif ied parts of digestive tract CAMDEN Paredes 10/01/2020 Z68.38 Body mass index [BMI] 38.0-38.9, adult CAMDEN Paredes 09/17/2020 K80.10 Calculus of gallblad rob with chronic cholecystitis without obstruction Olvin Pruitt MD 09/10/2020 K80.10 Calculus of gallblad rob with chronic cholecystitis without obstruction Olvin Pruitt MD 09/05/2020 E66.01 Morbid (severe) obesity due to e xcess calories Olvin Pruitt MD 09/05/2020 K80.10 Calculus of gallblad rob with chronic cholecystitis without obstruction Olvin Pruitt MD Plan of Treatment No Information Available Functional Status Description No Information Available Mental Status Description No Information Available Referrals Description No Information Available
--- OUTSIDE RECORDS SUMMARY | 2021-03-08 03:05 | CCD | Continuity of Care Document ---
Author Author Peter [employer]OT INSPECTOR P[employer]ER [employer]ODUCTS Organization Unknown Address [address] [place] [address] Phone [phone] Care Team Providers Care Track Grinder Operator Name Role Phone No PCP AUTM Unavailable [...] Available Procedures Date Code Description Status 03/05/2021 56179 Office/Outpatient Established Lo w MDM 20-29 Min Completed 02/11/2021 16271 Office/Outpatient New Low MDM 30 -44 Minutes [...]
[2021-03-08] MEDS ORDERED: AMOX875T PO (06:40)
[2021-03-08] MEDS ORDERED: IBUP-1114 PO (06:40)
--- OUTSIDE RECORDS SUMMARY | 2021-03-08 06:49 | CCD ---
Author Author [facility] Organization [facility] Address Unknown Phone Unavailable Care Team Providers Care Eyeglass Maker Name Role Phone Munoz Kera OBSTETRICS SPECIALIST Unavailable Unavailable Munoz, Kera OBSTETRICS SPECIALIST Unavailable Unavailable Munoz, Kera OBSTETRICS SPECIALIST Unavailable Unavailable Munoz, Kera OBSTETRICS SPECIALIST Unavailable Unavailable Munoz, Kera OBSTETRICS SPECIALIST Unavailable Unavailable Munoz, Kera OBSTETRICS SPECIALIST Unavailable Unavailable Munoz, Kera OBSTETRICS SPECIALIST Unavailable Unavailable Munoz, Kera OBSTETRICS SPECIALIST Unavailable Unavailable Munoz, Kera OBSTETRICS SPECIALIST Unavailable Unavailable Munoz, Kera OBSTETRICS SPECIALIST Unavailable Unavailable Munoz, Kera OBSTETRICS SPECIALIST Unavailable Unavailable Munoz, Kera OBSTETRICS SPECIALIST Unavailable Unavailable Munoz, Kera OBSTETRICS SPECIALIST Unavailable Unavailable Maring, Moreno PA Unavailable Unavailable Maring, Moreno PA Unavailable Unavailable Maring, Moreno PA Unavailable Unavailable Maring, Moreno PA Unavailable Unavailable Maring, Moreno PA Unavailable Unavailable Maring, Moreno PA Unavailable Unavailable Maring, Morneo PA Unavailable Unavailable Maring, Moreno PA Unavailable [...] Unavailable Unavailable Chris VELAZQUEZ MD Unavailable Unavailable SOBEIDAAYUGAhCris MD Unavailable Unavailable BARAYUGAChris MD Unavailable Unavailable [...] L Keke RPA Unavailable Unavailable Paula, L Kkee RPA Unavailable Unavailable Paula, L Keke RPA [...] Unavailable Suzan Santana MD Unavailable Unavailable Suzan Santaan MD Unavailable Unavailable Suzan Santana MD Unavailable [...] is protected by Article 27-F of the [facility] Public Health law. If you continue you may have access to information: Regarding HIV / AIDS; Provided by facilities licensed or operated by the [facility] Office of Mental Health; or Provided by the [facility] Office for People With Developmental Disabilities. If such information is present, then the following [facility] mandated warning applies: This information [...] law may result in a fine or nursing home sentence or both. A general authorization for the release of medical or other information is NOT sufficient authorization for further disc losure. Encounters Encounter Providers Location Date Indications Data Source(s ) Outpatient Attender: Kera alicia 03/05/2021 10:55:00 AM EDT [facility] ([facility], [facility]) Outpatient Attender: CLEMENTINE medina 02/11/2021 09:00:00 AM EDT [facility] ([facility], [facility]) Office Visit Attender: Keke Paula RPA Renetta/Elma/[place]/R eindl 10/09/2020 11:00:00 AM EDT [facility] ([facility], ) Office Visit Attender: Keke Paula RPA Renetta/Elma/[place]/R eindl 10/01/2020 10:00:00 AM EDT [facility] Outpatient Attender: RUDY Jackson/Elma/Darien/ Reindl 09/10/2020 09:00:00 AM EDT [facility] ([facility], ) Outpatient Attender: RUDY Jackson/Elma/[place]/ Reindl 09/05/2020 01:45:00 PM EDT [facility] Outpatient Attender: Moreno HANNAH 08/16/19 09:10:09 AM EDT - 08/15/2020 09:34:15 AM EDT [facility] ([facility] ) Outpatient Attender: Maricruz Santana MD 0 07/11/2020 12:01:20 PM EST - 07/11/2020 12:22:24 PM EST [facility] ([facility]) Immunizations Vaccine Date Status Description Data Source(s) COVID-19 VACCINE Moderna 09/11/2020 12:00:00 AM EDT completed [facility] Vaccine Series Complete: YESThis Data wa s Submitted to [facility] Via [employer]. COVID-19 VACCINE Moderna 08/14/2020 12:00:00 AM EDT completed [facility] Vaccine Series Complete: NOThis Data was Submitted to [facility] Via [employer]. Medications Medication Brand Name Start Date Product Form Dose Route Admi nistrative Instructions Pharmacy Instructions Status Indications Reaction Description Data Source(s) Amoxicillin 875 MG Oral Tablet Amoxicillin 03/05/2021 12:00:00 AM EDT ORAL active [facility] ([facility], [facility]) Acetaminophen 325 MG / Hydrocodone Bitartrate 5 MG Ora l Tablet Hydrocodone-Acetaminophen 09/17/2020 12:00:00 AM EDT ORAL completed [facility] ([facility]) Acetaminophen 325 MG / Hydrocodone Bitartrate 5 MG Ora l Tablet Hydrocodone Bitartrate/Acetaminophen 09/10/2020 12:00:00 AM EDT ORAL completed [facility] ([facility]) Insurance Providers Payer name Policy type / Coverage type Policy ID Covered green party ID Covered green party's relationship to anderson Policy Anderson Plan Information [facility] [id number] SP [id number] FF Self Pay [id number] Self [id number] [facility] [id number] SP [id number] FF Self Pay [id number] Self [id number] [facility] [id number] S [id number] Problems, Conditions, and Diagnoses No Information Surgeries/Procedures Procedure Description Date Indications Data Source(s) OFFICE OUTPATIENT VISIT 15 MINUTES 03/05/2021 12:00:00 AM EDT [facility] ([facility]) OFFICE OUTPATIENT NEW 30 MINUTES 02/11/2021 12:00:00 A M EDT [facility] ([facility]) Laparoscopy,Surgical;Cholecystectomy 09/17/2020 12:00: 00 AM EDT [facility] ([facility]) OFFICE OUTPATIENT VISIT 25 MINUTES 09/10/2020 12:00:00 AM EDT [facility] ([facility]) OFFICE OUTPATIENT NEW 45 MINUTES 09/05/2020 12:00:00 A M EDT [facility] ([facility]) Results ID Date Data Source [id number] 02/11/2021 12:00:00 AM EDT [facility] Name Value Range Interpretation Code Description Data Madhuri rce(s) Supporting Document(s) SARS-CoV2 Rapid Antigen Negative [facility] This lab was ordered by [facility] and reported by [facility]. ID Date Data Source [id number] 09/17/2020 03:32:00 PM EDT [facility] ([facility]) Name Value Range Interpretation Code Description Data Madhuri rce(s) Supporting Document(s) Surgical pathology study Laboratory test result [facility] ([facility]) FINAL DIAGNOSIS Gallbladder, cholecystectomy: Cholelithiasis. Chronic cholecystitis with cholesterolosis. 09/19/2020919 CLINICAL DIAGNOSIS Symptomatic cholelithiasis, biliary colic 09/18/20201338 GROSS DIAGNOSIS Received in formalin labeled "gallbladder and contents" and consists of a gallbladder 8 x 2 x 2 cm. The specimen is opened to reveal gallstones measuring from 0.5-2.0 cm. The mucosa is grossly unremarkable. No polypoid or mass lesion is identified. Director Of Physician Practices section submitted in one. -OA 09/18/20201338 Signed HERRERA MONDRAGON MD 09/19/2020920 ID Date Data Source [id number] 09/12/2020 10:35:00 AM EDT [facility] ([facility]) Name Value Range Interpretation Code Description Data Madhuri rce(s) Supporting Document(s) Laboratory test finding (navigational concept) Laboratory test result [facility] ([facility]) ASSAY INFORMATION: Real Time RT-PCR NOTE: The COVID-19 assay has been cleared by the U.S. Food and Drug Administration under the Emergency Use Authorization (EUA). [facility] are designated as high complexity laboratories by the Clinical Laboratory Improvement Amendments of 1988(CLIA) and are qualified to perform this test. Not Detected ID Date Data Source [id number] 09/12/2020 10:35:00 AM EDT [facility] Name Value Range Interpretation Code Description Data Madhuri rce(s) Supporting Document(s) SARS-CoV-2 (COVID-19) RNA [Presence] in Respiratory specimen by ERENDIRA with probe detection Not Detected [facility] This lab was ordered by [facility] and reported by [employer] ID Date Data Source [id number] 07/13/2020 06:32:00 AM EST [facility] Name Value Range Interpretation Code Description Data Madhuri rce(s) Supporting Document(s) [facility] COVID-19 RT-PCR OBSTETRICS SPECIALIST SWAB Not Detected Not Detected [facility] This test has received Emergency Use Aut horization (EUA). We willcontinue to follow federal and state requirements for COVID-19reporting. This test was developed and its performance characteristicsdetermined by [employer]. It has not been cleared orapproved by [...] agencies as required. ID Date Data Source [id number] 07/11/2020 12:15:00 PM EST [facility] Name Value Range Interpretation Code Description Data Madhuri rce(s) Supporting Document(s) SARS coronavirus 2 RNA [Presence] in Res piratory specimen by ERENDIRA with probe detection NEGATIVE [facility] This lab [facility] and reported by [employer]. ID Date Data Source [id number] 07/11/2020 12:00:00 AM EST [facility] Name Value Range Interpretation Code Description Data Madhuri rce(s) Supporting Document(s) Carestart Rapid COVID Antigen Test Negative [facility] This lab was reported by [facility]. Procedure Social History Code Duration Value Status Description Data Source(s ) Smoking 03/05/2021 12:00:00 AM EDT Patient has never smoked co mpleted Patient has never smoked [facility] ([facility]) Vital Signs ID Date Data Source UNK Name Value Range Interpretation Code Description Data Source(s) Body temperature 98.1 [degF] 98.1 [degF] [facility] ([facility]) Heart rate 85 /min 85 /min [facility] ([facility]) Respiratory rate 20 /min 20 /min [facility] ( [facility]) Oxygen saturation in Arterial blood by Pulse oximetry 99 % 99 % [facility] Systolic blood pressure 113 mm[Hg] 113 mm[Hg] M [facility]ENT ([facility], [facility]) Diastolic blood pressure 77 mm[Hg] 77 mm[Hg] [facility] ([facility], [facility]) Body weight 190.00 [lb_av] 190.00 [lb_av] [facility] T ([facility], [facility]) Body height 59 [in_i] 59 [in_i] [facility] ([facility], [facility]) 4'11" Body mass index (BMI) [Ratio] 38.4 kg/m2 38.4 k g/m2 [facility] ([facility], [facility]) Respiratory rate 14 /min 14 /min [facility], [facility]) Oxygen saturation in Arterial blood by Pulse oximetry 98 % 98 % [facility], [facility]) Body temperature 97.3 [degF] 97.3 [degF] [facility] ([facility], [facility]) Body weight 190.00 [lb_av] 190.00 [lb_av] [facility] T ([facility], [facility]) Body height 59 [in_i] 59 [in_i] [facility]) 4'11" Body mass index (BMI) [Ratio] 38.4 kg/m2 38.4 k g/m2 [facility] ([facility], [facility]) Systolic blood pressure 103 mm[Hg] 103 mm[Hg] M [facility] ([facility], [facility]) Diastolic blood pressure 69 mm[Hg] 69 mm[Hg] [facility], [facility]) Heart rate 92 /min 92 /min [facility] ([facility], [facility]) Body surface area Derived from formula 1.82 m2 1.82 m2 [facility] ([facility], ) Systolic blood pressure 127 mm[Hg] 127 mm[Hg] M [facility] ([facility], ) Diastolic blood pressure 77 mm[Hg] 77 mm[Hg] [facility], ) Body height 59 [in_i] 59 [in_i] [facility], ) 4'11" Body weight 194.50 [lb_av] 194.50 [lb_av] [facility] T ([facility]) Body mass index (BMI) [Ratio] 39.3 kg/m2 39.3 k g/m2 [facility] ([facility]) [place] body weight 100 [lb_av] 100 [lb_av] [facility] ([facility]) Body weight 88.225 kg 88.225 kg [facility] ([facility]) Body height 59 [in_i] 59 [in_i] [facility] ([facility]) 4'11" Body weight 194.50 [lb_av] 194.50 [lb_av] [facility] ([facility]) Body mass index (BMI) [Ratio] 39.3 kg/m2 39.3 k g/m2 [facility] ([facility]) [place] body weight 100 [lb_av] 100 [lb_av] [facility] ([facility]) Body weight 88.225 kg 88.225 kg [facility] ([facility]) Body surface area Derived from formula 1.82 m2 1.82 m2 [facility] ([facility]) Body weight 86.354 kg 86.354 kg [facility] ([facility]) Body height 59 [in_i] 59 [in_i] [facility] ([facility]) 4'11" [place] body weight 100 [lb_av] 100 [lb_av] [facility] ([facility]) Body surface area Derived from formula 1.81 m2 1.81 m2 [facility] ([facility]) Body weight 190.38 [lb_av] 190.38 [lb_av] [facility] ([facility]) Body mass index (BMI) [Ratio] 38.4 kg/m2 38.4 k g/m2 [facility] ([facility]) Systolic blood pressure 132 mm[Hg] 132 mm[Hg] [facility] Diastolic blood pressure 82 mm[Hg] 82 mm[Hg] [facility] ([facility]) Heart rate 84 /min 84 /min [facility] ([facility]) Body height 59 [in_i] 59 [in_i] [facility] ([facility]) 4'" Body weight 190.38 [lb_av] 190.38 [lb_av] [facility] ([facility]) Body mass index (BMI) [Ratio] 38.4 kg/m2 38.4 k g/m2 [facility] ([facility]) [place] body weight 100 [lb_av] 100 [lb_av] [facility] ([facility]) Body weight 86.354 kg 86.354 kg [facility] ([facility]) Body surface area Derived from formula 1.81 m2 1.81 m2 [facility] ([facility]) Systolic blood pressure 124 mm[Hg] 124 mm[Hg] [facility] Diastolic blood pressure 85 mm[Hg] 85 mm[Hg] [facility] ([facility]) Body height 59 [in_i] 59 [in_i] [facility] ([facility]) " Body weight 193.25 [lb_av] 193.25 [lb_av] [facility] ([facility]) Body mass index (BMI) [Ratio] 39.0 kg/m2 39.0 k g/m2 [facility] ([facility]) [place] body weight 100 [lb_av] 100 [lb_av] [facility] ([facility]) Body weight 87.658 kg 87.658 kg [facility] ([facility]) Body surface area Derived from formula 1.82 m2 1.82 m2 [facility] ([facility]) Systolic blood pressure 124 mm[Hg] 124 mm[Hg] M [facility] ([facility]) Diastolic blood pressure 77 mm[Hg] 77 mm[Hg] [facility] ([facility]) Heart rate 93 /min 93 /min [facility] ([facility]) Body height 59 [in_i] 59 [in_i] [facility] 4'11" Body weight 192.50 [lb_av] 192.50 [lb_av] [facility] ([facility]) Body mass index (BMI) [Ratio] 38.9 kg/m2 38.9 k g/m2 [facility] ([facility]) [place] body weight 100 [lb_av] 100 [lb_av] [facility] Body weight 87.318 kg 87.318 kg [facility] ([facility]) Body surface area Derived from formula 1.81 m2 1.81 m2 [facility] ([facility])
[2021-03-08] MEDS ORDERED: CIPR7.5D5 OTIC (07:15)
[2021-03-08] MEDS ORDERED: IBUPROFEN 600MG TAB PO ONE (07:25)
[2021-03-08] MEDS ORDERED: ACETAMINOPHEN 325 MG TAB PO ONE (07:25)
[2021-03-08 07:31] VITALS: BP 119/81
== END 2021-03-08 08:13 | disposition home or self-care (01) ==
LOC: M ED 02:57
DX: H66.90 Otitis media, unspecified, unspecified ear (principal)

== ENCOUNTER → 2021-04-18 | Outpatient (CLI) | payer OTHER ==
[~2021-04-18] MED LIST changes: +AMOX875T PO; +CIPR7.5D5 OTIC; +IBUP-1114 PO
[2021-04-18 11:04] LABS: BASO # 0.1 10^3/uL (0.0-0.2); BASO % 0.6 % (0.0-1.0); EOS # 0.3 10^3/uL (0.0-0.5); EOS % 3.6 % (0.0-3.0); HEMATOCRIT 38.8 % (36.0-47.0); HEMOGLOBIN 12.8 g/dl (12.0-15.5); LYMPH # 2.9 10^3/uL (1.5-5.0); LYMPH % 34.8 % (24.0-44.0); MEAN CORPUSCULAR HEMOGLOBIN 28.9 pg (27.0-33.0); MEAN CORPUSCULAR VOLUME 87.6 fl (80.0-96.0); MONO # 0.5 10^3/uL (0.0-0.8); MONO % 5.6 % (2.0-8.0); NEUTROPHILS # 4.6 10^3/uL (1.5-8.5); PLATELET COUNT, AUTOMATED 358 10^3/uL (150-450); RED BLOOD COUNT 4.43 10^6/uL (4.00-5.40)
[2021-04-18 11:39] LABS: FREE T4 1.08 NG/DL (0.76-1.46); GLUCOSE, FASTING 93 MG/DL (70-100); HCG, SERUM QUANTITATIVE < 1.0 MIU/ML; PROLACTIN 4.7 NG/ML
[2021-04-19 18:12] LABS: TESTOSTERONE FREE (DIRECT) 2.6 pg/mL (0.0-4.2)
[2021-04-21 10:54] LABS: WHITE BLOOD COUNT 8.3 10^3/uL (4.0-10.0)
== END ==
LOC: M LAB 09:38 → M RAD 09:38
PROVIDERS: ATTEND Obstetrics & Gynecology
DX: E28.2 Polycystic ovarian syndrome (principal)